=== PATIENT | male | born 1945 | race Caucasian/White ===

== ENCOUNTER 2017-11-26 12:38 | Inpatient (IN) | payer MEDICARE, OTHER ==
[~2017-11-26] VITALS: Ht 160 cm; Wt 75.2 kg
[~2017-11-26 12:38] MED LIST: ASPI-621 PO; ATOR20TA PO; ATOR40TA78 PO; CARV3.122 PO; CYCL-259 PO; GABA400C PO; LOSA100T2 PO; LOSA25TA6 PO; NITR0.4T28 SL; TAMS-11 PO; TICA90TA PO; TYLENOL PO
[2017-11-26] MEDS ORDERED: AMPICILLIN/SULBACTAM 3 GM in SODIUM CHLORIDE 0.9% 100 ML IVPB ONE (13:30)
[2017-11-26] MEDS ORDERED: SODIUM CHLORIDE FLUSH 10ML SYR IVF ONE (13:30)
[2017-11-26] MEDS ORDERED: VANCOMYCIN 1,600 MG in SODIUM CHLORIDE 0.9% 250 ML IV ONE (13:30)
[2017-11-26] MEDS ORDERED: VANCOMYCIN PER PHARMACY IV ONE (13:30)
[2017-11-26 13:55] LABS: BASOPHILS # (AUTO) 0.02 x10^3/uL (0-0.1); BASOPHILS % (AUTO) 0 % (0-1); EOSINOPHILS # (AUTO) 0.04 x10^3/uL (0-0.4); EOSINOPHILS % (AUTO) 0 % (1-7); LYMPHOCYTES % (AUTO) 12 % (22-44); MD NO; MEAN CORPUSCULAR HEMOGLOBIN 29.9 pg (27.5-34.5); MEAN CORPUSCULAR HGB CONC 33.7 g/dL (33.2-36.2); MEAN CORPUSCULAR VOLUME 88.8 fL (81-97); MEAN PLATELET VOLUME 8.2 fL (7.4-10.4); MONOCYTES # (AUTO) 0.75 x10^3/uL (0.2-0.8); MONOCYTES % (AUTO) 8 % (2-9); NEUTROPHILS # (AUTO) 7.53 x10^3/uL (1.8-6.8); NEUTROPHILS % (AUTO) 80 % (42-75); PLATELET COUNT 298 x10^3/uL (130-400); RED BLOOD COUNT 5.05 x10^6/uL (4.38-5.82); RED CELL DISTRIBUTION WIDTH 13.8 % (9.4-14.8)
[2017-11-26 14:03] LABS: ALBUMIN 3.5 g/dL (3.4-5.0); ANION GAP 10 mmol/L (5-15); CALCIUM 8.8 mg/dL (8.5-10.1); CHLORIDE 102 mmol/L (98-107); CREATININE 1.13 mg/dL (0.7-1.3)
[2017-11-26] MEDS ORDERED: NITROGLYCERIN 0.4 MG BOTTLE (25 TABS) SL PRN (15:00)
[2017-11-26] MEDS ORDERED: VANCOMYCIN PER PHARMACY MC PRN (15:30)
[2017-11-26] MEDS ORDERED: morphine SULFATE 10 MG/ML, 1ML IVPush PRN (15:30)
[2017-11-26] MEDS ORDERED: TRAZODONE 50MG TABLET PO PRN (15:30)
[2017-11-26] MEDS ORDERED: ONDANSETRON 2MG/ML, 2ML IVPush PRN (15:30)
[2017-11-26] MEDS ORDERED: LABETALOL 5MG/ML, 20ML IVPush PRN (15:30)
[2017-11-26] MEDS ORDERED: DOCUSATE 100 MG CAPSULE PO PRN (15:30)
[2017-11-26] MEDS ORDERED: ONDANSETRON ODT 4 MG PO PRN (15:30)
[2017-11-26] MEDS ORDERED: ACETAMINOPHEN 325 MG TABLET PO PRN (15:30)
[2017-11-26] MEDS ORDERED: OXYcodone IR 5MG TABLET PO PRN (15:30)
[2017-11-26] MEDS ORDERED: PHARMACOKINETIC MONITORING MC PRN (16:00)
[2017-11-26] MEDS ORDERED: PHARMACOKINETIC CONSULTATION MC ONE (16:00)
[2017-11-26] MEDS: CLINDAMYCIN PMX 900MG/50ML 50 ML IV SCH (16:14)
[2017-11-26] MEDS: HEPARIN 5,000 UNITS/ML, 1ML SQ SCH (16:16)
[2017-11-26] MEDS ORDERED: CLOP75TA52 PO (17:02)
[2017-11-26 17:21] VITALS: BP 144/76
[2017-11-26 18:20] VITALS: BP 143/68
[2017-11-26] MEDS: CARVEDILOL 3.125 MG TABLET PO SCH (18:22)
[2017-11-26] MEDS: ATORVASTATIN 20 MG TABLET PO SCH (20:02)
[2017-11-27] MEDS: CLINDAMYCIN PMX 900MG/50ML 50 ML IV SCH ×3 (00:11→17:47)
[2017-11-27] MEDS: HEPARIN 5,000 UNITS/ML, 1ML SQ SCH ×3 (00:58→17:50)
[2017-11-27 02:29] VITALS: BP 105/62
[2017-11-27 06:07] LABS: BASOPHILS # (AUTO) 0.01 x10^3/uL (0-0.1); BASOPHILS % (AUTO) 0 % (0-1); EOSINOPHILS # (AUTO) 0.13 x10^3/uL (0-0.4); EOSINOPHILS % (AUTO) 2 % (1-7); LYMPHOCYTES # (AUTO) 1.73 x10^3/uL (1-3.4); LYMPHOCYTES % (AUTO) 26 % (22-44); MD NO; MEAN CORPUSCULAR HEMOGLOBIN 29.6 pg (27.5-34.5); MEAN CORPUSCULAR HGB CONC 33.7 g/dL (33.2-36.2); MEAN CORPUSCULAR VOLUME 87.9 fL (81-97); MEAN PLATELET VOLUME 8.3 fL (7.4-10.4); MONOCYTES # (AUTO) 0.63 x10^3/uL (0.2-0.8); MONOCYTES % (AUTO) 10 % (2-9); NEUTROPHILS # (AUTO) 4.13 x10^3/uL (1.8-6.8); NEUTROPHILS % (AUTO) 62 % (42-75); PLATELET COUNT 273 x10^3/uL (130-400); RED BLOOD COUNT 4.67 x10^6/uL (4.38-5.82); RED CELL DISTRIBUTION WIDTH 14.2 % (9.4-14.8)
[2017-11-27] MEDS: CARVEDILOL 3.125 MG TABLET PO SCH ×2 (06:07→17:49)
[2017-11-27] MEDS: ASPIRIN 81 MG TABLET EC PO SCH (06:07)
[2017-11-27 06:27] LABS: ANION GAP 8 mmol/L (5-15); CALCIUM 8.5 mg/dL (8.5-10.1); CHLORIDE 105 mmol/L (98-107)
[2017-11-27 06:32] LABS: ALANINE AMINOTRANSFERASE 58 U/L (12-78); ALKALINE PHOSPHATASE 119 U/L (45-117); BILIRUBIN,TOTAL 0.7 mg/dL (0.2-1.0); CREATININE 1.07 mg/dL (0.7-1.3); TOTAL PROTEIN 6.9 g/dL (6.4-8.2)
[2017-11-27 07:31] VITALS: BP 121/71
[2017-11-27] MEDS: LOSARTAN 25MG TABLET PO SCH (07:51)
[2017-11-27 13:33] VITALS: BP 131/74
[2017-11-27] MEDS ORDERED: VANCOMYCIN 1,600 MG in SODIUM CHLORIDE 0.9% 250 ML IV SCH (14:00)
[2017-11-27 19:07] VITALS: BP 117/63
[2017-11-27] MEDS: ATORVASTATIN 20 MG TABLET PO SCH (21:10)
[2017-11-28] MEDS: HEPARIN 5,000 UNITS/ML, 1ML SQ SCH ×2 (00:17→08:08)
[2017-11-28] MEDS: CLINDAMYCIN PMX 900MG/50ML 50 ML IV SCH ×2 (00:17→08:07)
[2017-11-28 02:18] VITALS: BP 153/85
[2017-11-28] MEDS: ASPIRIN 81 MG TABLET EC PO SCH (05:24)
[2017-11-28] MEDS: CARVEDILOL 3.125 MG TABLET PO SCH (05:24)
[2017-11-28 07:51] VITALS: BP 140/72
[2017-11-28] MEDS: LOSARTAN 25MG TABLET PO SCH (08:23)
[2017-11-28] MEDS ORDERED: DOXY100T PO (09:00)
[2017-11-28] MEDS ORDERED: ACID1TAB3 PO (09:00)
[2017-11-28] MEDS ORDERED: METR500T8 PO (09:00)
[2017-11-28 11:42] VITALS: BP 138/74
== END 2017-11-28 13:15 | disposition home or self-care (01) | DRG 603 ==
LOC: ED 13:35 → EDIP 14:13 → 4NOR 15:18 → DCLOUNGE 11-28 13:05
PROVIDERS: ADMIT Internal Medicine; ATTEND Internal Medicine
DX: L03.114 Cellulitis of left upper limb (principal); E44.1 Mild protein-calorie malnutrition; S61.432A Puncture wound without foreign body of left hand, initial encounter; E78.5 Hyperlipidemia, unspecified; I10 Essential (primary) hypertension; I25.10 Atherosclerotic heart disease of native coronary artery without angina pectoris; M19.90 Unspecified osteoarthritis, unspecified site; S60.512A Abrasion of left hand, initial encounter; W55.03XA Scratched by cat, initial encounter; Z23 Encounter for immunization; Z88.0 Allergy status to penicillin; Z88.1 Allergy status to other antibiotic agents; Z95.5 Presence of coronary angioplasty implant and graft; Z79.02 Long term (current) use of antithrombotics/antiplatelets; Z88.8 Allergy status to other drugs, medicaments and biological substances; Z68.29 Body mass index [BMI] 29.0-29.9, adult; Y93.89 Activity, other specified; Y92.098 Other place in other non-institutional residence as the place of occurrence of the external cause; Y99.8 Other external cause status
CPT/HCPCS: 36415; 80048; 80053; 82040; 85025; 87040; 96365; 99285; G0378; J1644; J3370; J7050

== ENCOUNTER → 2018-08-22 | Outpatient (CLI) | payer MEDICARE, OTHER ==
[~2018-08-22] MED LIST changes: +ACID1TAB3 PO; -ASPI-621 PO; +ASPI81TA45 PO; +CLOP75TA52 PO; +DOXY100T PO; +LOSA25TA25 PO; -LOSA25TA6 PO; +METR-90 PO
== END | disposition home or self-care (01) ==
LOC: WOUND 13:07
PROVIDERS: ATTEND Internal Medicine
DX: Z93.2 Ileostomy status (principal); K92.2 Gastrointestinal hemorrhage, unspecified; I25.2 Old myocardial infarction; I10 Essential (primary) hypertension; E78.5 Hyperlipidemia, unspecified; M19.90 Unspecified osteoarthritis, unspecified site; I25.10 Atherosclerotic heart disease of native coronary artery without angina pectoris; Z88.0 Allergy status to penicillin; Z88.1 Allergy status to other antibiotic agents; Z95.5 Presence of coronary angioplasty implant and graft; Z79.02 Long term (current) use of antithrombotics/antiplatelets; Z88.8 Allergy status to other drugs, medicaments and biological substances; Z85.048 Personal history of other malignant neoplasm of rectum, rectosigmoid junction, and anus
CPT/HCPCS: G0463